=== PATIENT | female | born 1985 | race Caucasian/White ===

== ENCOUNTER 2016-10-15 17:33 | Emergency (ER) | payer BC ==
[2016-10-15 18:01] VITALS: BP 120/71
[2016-10-15] MEDS ORDERED: Sulfamethox/Trimethoprim DS 800/160* TAB PO ONE (18:32)
--- NOTE | 2016-10-15 18:48 | UC ---
Complaint Female HPI - HPI Summary HPI Summary: SINCE THIS AM HAD HAD INCREASED FREQUENCY AND BURNING WITH URINATION. NO FEVER. SINCE TWO HOURS AGO HAS HAD DISCOMFORT AROUND ABDOMEN. NOT CURRENTLY ON PERIOD. HAS BEEN DRINKING A LOT OF WATER AND CRANBERRY JUICE. NO BACK PAIN OR BLOOD NOTED IN URINE. - History Of Current Complaint Chief Complaint: UCGU Stated Complaint: URINARY Time Seen by Provider: 10/15/16 18:00 Hx Obtained From: Patient Hx Last Menstrual Period: 09/30/16 Onset/Duration: Gradual Onset, Lasting Hours, Still Present Timing: Intermittent Severity Initially: Mild Severity Currently: Mild Pain Intensity: 4 Pain Scale Used: 0-10 Numeric Character: Dull Aggravating Factor(s): Urination Associated Signs And Symptoms: Negative: Fever, Back Pain, Vaginal Bleeding/ Discharge, Vaginal Discharge, Nausea - Allergies/Home Medications Allergies/Adverse Reactions: Allergies Allergy/AdvReac Type Severity Reaction Status Date / Time Erythromycin Allergy HIVES AND Verified 10/15/16 18:02 STOMACH PAINS Adhesive Tape/Steristrips Allergy Blisters Uncoded 10/15/16 18:02 Environmental/Seasonal Allergy Sneeze, Uncoded 10/15/16 18:02 Hayfever itchy watery eyes PMH/Surg Hx/FS Hx/Imm Hx Previously Healthy: Yes Neurological History Of: Reports: Migraine - CONTROL WITH MEDS Psychological History Of: Reports: Anxiety - HX OF, Depression - HX OF - Surgical History Surgical History: Yes Surgery Procedure, Year, and Place: 2002 RIGHT KNEE ARTHROSCOPIC SURGERY, [facility]. 2012 CONDYLOMA REMOVED FROM RECTUM, [facility]. 1998 BILATERAL [facility] - Family History Known Family History: Positive: None - denies any cad Negative: Renal Disease - NO KIDNEY STONES - Social History Occupation: Employed Full-time Lives: With Family Alcohol Use: None Substance Use Type: None Smoking Status (MU): Never Smoked Tobacco - Immunization History Most Recent Influenza Vaccination: 2014 Most Recent Tetanus Shot: 2010 Most Recent Pneumonia Vaccination: NONE Review of Systems Constitutional: Negative Skin: Negative Eyes: Negative ENT: Negative Respiratory: Negative Cardiovascular: Negative Gastrointestinal: Negative Genitourinary: Dysuria, Frequency, Urgency Motor: Negative Neurovascular: Negative Musculoskeletal: Negative Neurological: Negative Psychological: Negative All Other Systems Reviewed And Are Negative: Yes Physical Exam Triage Information Reviewed: Yes Appearance: Well-Appearing, No Pain Distress, Well-Nourished Vital Signs: Initial Vital Signs Temp 96.7 F 10/15/16 17:59 Pulse 66 10/15/16 17:59 Resp 16 10/15/16 17:59 BP 120/71 10/15/16 17:59 Pulse Ox 100 10/15/16 17:59 Vital Signs Reviewed: Yes Eye Exam: Normal ENT Exam: Normal ENT: Positive: Normal ENT inspection, Hearing grossly normal, TMs normal Dental Exam: Normal Neck exam: Normal Neck: Positive: Supple, Nontender, No Lymphadenopathy Respiratory Exam: Normal Respiratory: Positive: Chest non-tender, Lungs clear, Normal breath sounds, No respiratory distress, No accessory muscle use Cardiovascular Exam: Normal Cardiovascular: Positive: RRR, No Murmur, Pulses Normal, Brisk Capillary Refill Abdomen Description: Positive: No Organomegaly, Soft, CVA Tenderness (L). Negative: Nontender - TENDERNESS AT BILATERAL LOWER QUADRANTS Musculoskeletal Exam: Normal Musculoskeletal: Positive: Strength Intact, ROM Intact, No Edema Neurological Exam: Normal Psychological Exam: Normal Psychological: Positive: Normal Response To Family Skin Exam: Normal Diagnostics - Laboratory Diagnostic Studies Completed/Ordered: URINALYSIS: SCANT LEUKS, 300 BLOOD Complaint Female Dx - Course Course Of Treatment: DUE TO SCANT LEUKS AND HEMATURIA IN ABSENCE OF MENSES, I ADVISED [facility]INT TO SEEK ED EVALUATION FOR HEMATURIA/DYSURIA. PATIENT REFUSED TO GO TO ED ([facility]) AND AGREED TO SIGN AMA. HOWEVER DUE TO POSSIBILITY OF DILUTED URINE, WITH SCANT LEUKS, I ALSO ELECTED TO GIVE A COURSE OF ANTIBIOTICS AND STRONGLY ADVISED PATIENT TO SEEK ED TREATMENT IF PAIN WORSENS, IF BLOOD WORSENS, OR IF ANY NEW SYMPTOMS DEVELOP - Differential Dx/Diagnosis Differential Diagnosis/HQI/PQRI: Cervicitis, Urinary Tract Infection Provider Diagnoses: DYSURIA. HEMATURIA Discharge - Discharge Plan Condition: Stable Disposition: AGAINST MEDICAL ADVICE Prescriptions: Sulfamethox/Trimethoprim DS* [Bactrim DS 800/160 TAB*] 1 tab PO BID #10 tab Patient Education Materials: Dysuria (ED) Referrals: Fredy Spencer MD [Primary Care Provider] -
== END 2016-10-15 18:41 | disposition left against medical advice (07) ==
LOC: UCCORT 17:33
DX: R30.0 Dysuria (principal); R31.9 Hematuria, unspecified; Z88.1 Allergy status to other antibiotic agents
CPT/HCPCS: 81025; 87077; 87086; 87186; 99212; A9270-GY; G0463

== ENCOUNTER 2016-11-14 12:53 | Emergency (ER) | payer BC ==
[2016-11-14] MEDS ORDERED: NS 0.9% 1000 ML* 1,000 ML IV ONE (15:33)
[2016-11-14] MEDS ORDERED: Acetaminophen TAB* 325 MG PO ONE (15:33)
[2016-11-14] MEDS ORDERED: PROCHLORPERAZINE INJ 5 MG/ML 2 ML VIAL IV PRN (15:34)
[2016-11-14] MEDS ORDERED: diPHENhydraMINE IV* 50 MG/ML 1 ml VIAL (BENADRYL) IV ONE (15:35)
--- NOTE | 2016-11-14 16:35 | ED ---
Headache - HPI Summary HPI Summary: Patient with a PMHx of migraines and bariatric surgery 1 year ago arrives with CC of migraine with 3 episodes of syncope over the last 3 days. She denies ever having syncope before, but has a history of migraines which she takes imitrex with relief. The last few times she has taken Imitrex, she has not found relief. She is experiencing syncope which she describes as "blacking out " and losing consciousness for "a second" and experiencing migraines right after. There is no specific times which she is passing out. One time was in the AM. Two times were in the PM. Two times were while standing. One time was while sitting. She states she feels "weird" immediately before she passes out, but can't determine if she is having a temperature change or feeling dizzy beforehand. Denies numbness, tingling. States the migraine is similar to her previous migraines which are not located in a specific location and move from behind the eyes to the parietal lobes and sometimes experiencing pain in the occipital lobe. Denies photophobia or visual changes, but vision becomes black prior to her passing out. Denies cardiac history or low blood pressures. She denies melena, hematemesis or known anemia. Denies abd pain, diarrhea, constipation or N/V. Denies urinary symptoms or back pain. - History Of Current Complaint Chief Complaint: EDHeadache Stated Complaint: HEADACHE/SYNCOPE Time Seen by Provider: 11/14/16 15:24 Hx Obtained From: Patient Hx Last Menstrual Period: 09/30/16 Onset/Duration: Sudden Onset, Started days ago Initially Headache Was: Moderate Currently Pain Is: Current Pain Scale(0-10)= - 5, Moderate Timing: Hours Character: Throbbing Location of Headache: Frontal, Parietal, Occipital, Other: - behind the left eye Aggravating Factor: Nothing Allevating Factors: Rest Associated Signs And Symptoms: Dizziness, Decreased LOC - Risk Factors SAH Risk Factors: Negative Meningitis Risk Factors: Negative SDH Risk Factors: Negative Temporal Arteritis Risk Factors: Negative - Allergies/Home Medications Allergies/Adverse Reactions: Allergies Allergy/AdvReac Type Severity Reaction Status Date / Time Erythromycin Allergy HIVES AND Verified 10/15/16 18:02 STOMACH PAINS Adhesive Tape/Steristrips Allergy Blisters Uncoded 10/15/16 18:02 Environmental/Seasonal Allergy Sneeze, Uncoded 10/15/16 18:02 Hayfever itchy watery eyes PMH/Surg Hx/FS Hx/Imm Hx Previously Healthy: Yes Respiratory History: Reports: Hx Sleep Apnea Sensory History: Reports: Hx Contacts or Glasses - GLASSES Denies: Hx Hearing Aid Opthamlomology History: Reports: Hx Contacts or Glasses - GLASSES Neurological History: Reports: Hx Migraine - CONTROL WITH MEDS Psychiatric History: Reports: Hx Anxiety - HX OF, Hx Depression - HX OF - Surgical History Surgery Procedure, Year, and Place: 2002 RIGHT KNEE ARTHROSCOPIC SURGERY, [facility]. 2012 CONDYLOMA REMOVED FROM RECTUM, [facility]. 1999 BILATERAL MYRINGOTOMY WITH TUBE INSERTION AND REMOVAL, [facility]. gastric bypass Hx Anesthesia Reactions: No Infectious Disease History: No Infectious Disease History: Denies: History Other Infectious Disease, Traveled Outside the in Last 30 Days - Family History Known Family History: Positive: None - denies any cad Negative: Renal Disease - NO KIDNEY STONES - Social History Occupation: Employed Full-time Lives: With Family Alcohol Use: None Hx Substance Use: No Substance Use Type: Reports: None Hx Tobacco Use: No Smoking Status (MU): Never Smoked Tobacco Review of Systems Constitutional: Negative ENT: Negative Cardiovascular: Negative Respiratory: Negative Gastrointestinal: Negative Positive: no symptoms reported, see HPI Musculoskeletal: Negative Skin: Negative Positive: Headache, Weakness, Syncope Psychological: Normal All Other Systems Reviewed And Are Negative: Yes Physical Exam Triage Information Reviewed: Yes Vital Signs On Initial Exam: Initial Vitals Temp Pulse Resp BP Pulse Ox 99.7 F 113 20 133/92 100 11/14/16 12:54 11/14/16 12:54 11/14/16 12:54 11/14/16 12:54 11/14/16 12:54 Vital Signs Reviewed: Yes Appearance: Positive: Well-Appearing Skin: Positive: Warm, Skin Color Reflects Adequate Perfusion Head/Face: Positive: Normal Head/Face Inspection Eyes: Positive: EOMI, MIKE, Conjunctiva Clear Neck: Positive: Supple Respiratory/Lung Sounds: Positive: Clear to Auscultation, Breath Sounds Present Cardiovascular: Positive: Normal, RRR Abdomen Description: Positive: Nontender, Soft Bowel Sounds: Positive: Present Musculoskeletal: Positive: Normal, Strength/ROM Intact Neurological: Positive: Normal, Sensory/Motor Intact, Alert, Oriented to Person Place, Time, CN Intact II-III, Normal Gait, Speech Normal Psychiatric: Positive: Normal AVPU Assessment: Alert Diagnostics - Vital Signs Vital Signs Temp Pulse Resp BP Pulse Ox 11/14/16 14:58 102.8 F 106 18 129/85 98 11/14/16 12:54 99.7 F 113 20 133/92 100 - Laboratory Result Diagrams: 11/14/16 17:10 Lab Statement: Any lab studies that have been ordered have been reviewed, and results considered in the medical decision making process. Headache Course/Dx - Course Course Of Treatment: Labs WNL. UA WNL. Fluids, benardryl, tylenol and compazine given. - Diagnoses Provider Diagnoses: Migraine Discharge - Discharge Plan Condition: Stable Disposition: OTHER Discharge Disposition Comment: Signed out to ISAAC Capone at 5:45pm. Referrals: Fredy Spenecr MD [Primary Care Provider] -
[2016-11-14 17:40] LABS: Hematocrit 41 % (35-47); Hemoglobin 13.8 g/dl (12.0-16.0); Mean Corpuscular HGB Conc 34 g/dl (31-36); Mean Corpuscular Hemoglobin 30 pg (27-31); Mean Corpuscular Volume 89 fL (80-97); Mean Platelet Volume 9 um3 (7.4-10.4); Red Blood Count 4.57 10^6/ul (4.0-5.4); Red Cell Distribution Width 13 % (10.5-15); White Blood Count 6.7 10^3/ul (3.5-10.8)
[2016-11-14 18:00] LABS: ALT 22 U/L (7-52); Albumin 4.1 g/dL (3.2-5.2); Alkaline Phosphatase 71 U/L (34-104); BUN/Creatinine Ratio 16.4 (8-20); Blood Urea Nitrogen 9 mg/dL (6-24); CO2 Carbon Dioxide 24 mmol/L (22-32); Calcium 9.1 mg/dL (8.6-10.3); Chloride 101 mmol/L (101-111); EGFR African American 168.1 (>60); EGFR Non-African American 130.7 (>60); Glucose 96 mg/dL (70-100); Sodium 132 mmol/L (133-145); Total Protein 7.1 g/dL (6.4-8.9)
[2016-11-14 18:09] LABS: TSH (Thyroid Stimulating Horm) 0.97 mcIU/mL (0.34-5.60)
--- NOTE | 2016-11-14 19:16 | RAD ---
Indication: Severe headaches with syncope. CT of the brain was performed without IV contrast. Ventricular structures are midline. No midline shift is noted. The stricture spaces are unremarkable. There is no evidence of intracranial mass or hemorrhage. No other high or low density lesions are identified. Mastoid air cells and paranasal sinuses are otherwise unremarkable. IMPRESSION: No intracranial mass or hemorrhage is noted.
[2016-11-14 19:39] LABS: Magnesium 1.6 mg/dL (1.9-2.7)
[2016-11-14] MEDS ORDERED: Magnesium Sulfate 2 GM IV* 2 GM/50 ML BAG IVPB ONE (19:41)
[2016-11-14] MEDS ORDERED: Ketorolac INJ* 30 MG/ML 1 ML VIAL IV PUSH ONE (20:28)
[2016-11-14 21:18] VITALS: BP 128/96
--- NOTE | 2016-11-14 21:18 | ED ---
Progress - Progress Note Progress Note: Pt signed out by Karen Larson PA-C. Pt here w/ c/o syncope followed by migraines. She has had migraines in the past but not syncope and not sure why this is happening. She reports vision going dark and falling while at work once (landed on knees, did not hit head) and another time while sitting on the couch, watching TV. After both of these episodes has had BRYANT's. Has been taking imitrex w/o relief. She is s/p bariatric surgery. Has nutrition labs checked q 3 months - last checked 2 months ago. No change in diet. Denies issues w/ BP and no s/sx of bleeding (ie. hematochezia, easy bruising, etc). Feels bad in general. Labs indicate hypomagnesemia and mild hyponatremia. No s/sx of infection, anemia , etc. Pt received 2L NS and 2 grams of IV magnesium. Reports she feels much better and stronger - BYRANT and leg pain resolved. Ready to go home. Advised f/u w/ bariatric surgeon as she does not appear to be absorbing mag well. Pt agrees w/ plan. Encouraged eating foods high in magnesium. Reviewed danger s/sx of when to return to ED. Course/Dx - Course Course Of Treatment: Labs WNL. UA WNL. Fluids, benardryl, tylenol and compazine given. - Diagnoses Provider Diagnoses: Migraine
== END 2016-11-14 21:18 | disposition home or self-care (01) ==
LOC: ED 12:53
DX: G43.909 Migraine, unspecified, not intractable, without status migrainosus (principal); R55 Syncope and collapse; R42 Dizziness and giddiness; R53.1 Weakness
CPT/HCPCS: 36415; 70450; 80053; 82947; 83605; 83735; 84443; 84484; 85025; 85610; 85730; 87502; 93005; 96374; 96375; 99285; A9270-GY; J0780; J1200; J3475

== ENCOUNTER → 2017-02-01 04:57 | Emergency (ER) | payer BC ==
[~2017-02-01 04:57] MED LIST: Sulfamethox/Trimethoprim DS 800/160* TAB ONE; Sulfamethox/Trimethoprim DS 800/160* TAB PO ONE
[2017-02-01 05:56] LABS: Manual Entry Verification ROB0080; UR Preg Internal Control QC Line Present
[2017-02-01 06:26] VITALS: BP 118/79
--- NOTE | 2017-02-03 15:10 | PN ---
Progress Note - Progress Note Note: Patient calls ED to inform provider she is not improving on Bactrim. Lab called to request sensitivities as they are not inputted at this time. Sensitivities sent, and E. Coli resistant to Bactrim. Prescription changed to Cipro. Patient called and informed of results. She agrees to picking tech Ciprofloxacin and Pyridium today and return if symptoms worsen.
--- NOTE | 2017-02-05 10:55 | ED ---
Micki Walker [place], scribed for Daniel Ramirez MD on 02/01/17 at 0605 . GI/ HPI - HPI Summary HPI Summary: Patient is a 31 y/o F who presents to the ED with hematuria and dysuria since last night. She states that she had similar sx last week with cramping abd pain and was diagnosed with a UTI. Pt was put on Macrobid and finished course 2 days ago. She denies flank pain, fever, chills, or vaginal discharge. LMP ended 10 days ago. Pt has a hx of gastric bypass. Pt denies concern of STDs. - History of Current Complaint Chief Complaint: EDUrogenitalProblems Time Seen by Provider: 02/01/17 06:02 Stated Complaint: BLOOD IN URINE Hx Obtained From: Patient Onset/Duration: Started Hours Ago, Atraumatic, Still Present Timing: Constant Severity: Moderate Current Severity: Moderate Location of Pain: Suprapubic Pain Characteristics: Burning Associated Signs and Symptoms: Positive: Hematuria, Dysuria, Abdominal Pain, UTI Symptoms. Negative: Discharge, Fever, Flank Pain Aggravating Factor(s): Urination Alleviating Factor(s): Nothing - Additional Pertinent History Primary Care Physician: TAMRA - Allergy/Home Medications Allergies/Adverse Reactions: Allergies Allergy/AdvReac Type Severity Reaction Status Date / Time Erythromycin Allergy HIVES AND Verified 10/15/16 18:02 STOMACH PAINS Adhesive Tape/Steristrips Allergy Blisters Uncoded 10/15/16 18:02 Environmental/Seasonal Allergy Sneeze, Uncoded 10/15/16 18:02 Hayfever itchy watery eyes PMH/Surg Hx/FS Hx/Imm Hx Respiratory History: Reports: Hx Sleep Apnea Sensory History: Reports: Hx Contacts or Glasses - GLASSES Denies: Hx Hearing Aid Opthamlomology History: Reports: Hx Contacts or Glasses - GLASSES Neurological History: Reports: Hx Migraine - CONTROL WITH MEDS Psychiatric History: Reports: Hx Anxiety - HX OF, Hx Depression - HX OF - Surgical History Surgery Procedure, Year, and Place: 2002 RIGHT KNEE ARTHROSCOPIC SURGERY, [facility] [place]. 2012 CONDYLOMA REMOVED FROM RECTUM, [facility] [place]. 1998 BILATERAL MYRINGOTOMY WITH TUBE INSERTION AND REMOVAL, [facility]. gastric bypass Hx Anesthesia Reactions: No Infectious Disease History: Denies: History Other Infectious Disease, Traveled Outside the [place] in Last 30 Days - Family History Known Family History: Positive: None - denies any cad Negative: Renal Disease - NO KIDNEY STONES - Social History Alcohol Use: None Hx Substance Use: No Substance Use Type: Reports: None Hx Tobacco Use: No Smoking Status (MU): Never Smoked Tobacco Review of Systems Negative: Fever, Chills Positive: Abdominal Pain Positive: dysuria, hematuria. Negative: discharge, flank pain All Other Systems Reviewed And Are Negative: Yes Physical Exam Triage Information Reviewed: Yes Vital Signs Reviewed: Yes Appearance: Positive: Well-Appearing, No Pain Distress Skin: Positive: Warm, Skin Color Reflects Adequate Perfusion, Dry Head/Face: Positive: Normal Head/Face Inspection Eyes: Positive: EOMI, MIKE Neck: Positive: Supple, Nontender Respiratory/Lung Sounds: Positive: Clear to Auscultation, Breath Sounds Present Cardiovascular: Positive: RRR Abdomen Description: Positive: Soft, Other: - Mild pain over suprapubic. Bowel Sounds: Positive: Present Musculoskeletal: Positive: Normal, Strength/ROM Intact Neurological: Positive: Normal, Sensory/Motor Intact, Alert, Oriented to Person Place, Time Psychiatric: Positive: Affect/Mood Appropriate - Angela Coma Scale Coma Scale Total: 15 Diagnostics - Laboratory Lab Results: Lab Results 02/01/17 Range/Units 05:28 Urine Color Red A Urine Appearance Turbid Urine pH TNP Ur Specific [place] TNP Urine Protein TNP Urine Ketones TNP Urine Blood TNP Urine Nitrate TNP Urine Bilirubin TNP Urine Urobilinogen TNP Ur Leukocyte Esterase TNP Urine WBC (Auto) 3+(>20/hpf) H (Absent) Urine RBC (Auto) 3+(>10/hpf) H (Absent) Urine Glucose TNP Urine Ascorbic Acid TNP Urine Test Negative (Negative) Lab Statement: Any lab studies that have been ordered have been reviewed, and results considered in the medical decision making process. GIGU Course/Dx - Course Course Of Treatment: NO CRITICAL CARE TIME. WILL TREAT UTI WITH BACTRIM. PATIENT RECENTLY TREATED FOR GARDNERELLA. DISCHARGE HOME STABLE. - Diagnoses Provider Diagnoses: UTI (urinary tract infection) Discharge - Discharge Plan Condition: Stable Disposition: HOME Prescriptions: Ciprofloxacin TAB* [Cipro 500 MG TAB*] 500 mg PO BID #14 tab Phenazopyridine TAB* [Pyridium 100 mg TAB*] 100 mg PO TID #12 tab MDD 3 Sulfamethox/Trimethoprim DS* [Bactrim DS 800/160 TAB*] 1 tab PO BID #13 tab Patient Education Materials: Urinary Tract Infection in Women (ED) Referrals: Fredy Spencer MD [Primary Care Provider] - Additional Instructions: FOLLOW UP WITH YOUR DOCTOR. RETURN TO THE EMERGENCY DEPARTMENT FOR ANY WORSENING OF YOUR CONDITION; FEVER, FLANK PAIN, YOU FEEL ILL OR QUESTIONS OR CONCERNS. The documentation as recorded by the Micki wood [place] accurately reflects the service I personally performed and the decisions made by me, Daniel Ramirez MD.
== END | disposition home or self-care (01) ==
LOC: ED 04:57
DX: N39.0 Urinary tract infection, site not specified (principal); R31.9 Hematuria, unspecified; R30.0 Dysuria
CPT/HCPCS: 81003; 81025; 87077; 87086; 87186; 99282; A9270-GY

== ENCOUNTER 2017-07-18 10:10 | Emergency (ER) | payer BC ==
[2017-07-18 10:20] VITALS: BP 132/82
--- NOTE | 2017-07-18 10:56 | UC ---
Respiratory Complaint HPI - HPI Summary HPI Summary: Pt presents with right sided headache and sinus congestion for 10 days. At first she thought it was her "usual migraine" so she took her migraine medications without relief. Then she tried OTC decongestants with mild relief. She reports an increased temp of 100.0F the last two days. Denies cough, ST, SOB , chest pain, abdominal pain, N/V/D/C, photophobia, vision changes, recent trauma, difficulty with movement or speech, or weakness. - History of Current Complaint Chief Complaint: UCRespiratory Stated Complaint: HEADACHE, FEVER Time Seen by Provider: 07/18/17 10:49 Hx Obtained From: Patient Hx Last Menstrual Period: 06/26/2017 Onset/Duration: Gradual Onset Timing: Constant Severity Initially: Moderate Severity Currently: Moderate Pain Intensity: 8 Pain Scale Used: 0-10 Numeric - Allergies/Home Medications Allergies/Adverse Reactions: Allergies Allergy/AdvReac Type Severity Reaction Status Date / Time Erythromycin Allergy HIVES AND Verified 07/18/17 10:14 STOMACH PAINS Adhesive Tape/Steristrips Allergy Blisters Uncoded 07/18/17 10:14 Environmental/Seasonal Allergy Sneeze, Uncoded 07/18/17 10:14 Hayfever itchy watery eyes Home Medications: Home Medications Acarbose [Precose] 25 mg PO TID 07/18/17 [History Confirmed 07/18/17] PMH/Surg Hx/FS Hx/Imm Hx Previously Healthy: Yes Neurological History: Migraine - Surgical History Surgical History: Yes Surgery Procedure, Year, and Place: 2002 RIGHT KNEE ARTHROSCOPIC SURGERY, [facility]. 2012 CONDYLOMA REMOVED FROM RECTUM, [facility]. 1998 BILATERAL MYRINGOTOMY WITH [facility] INSERTION AND [facility]AL, [facility]. gastric bypass - Family History Known Family History: Positive: None - denies any cad Negative: Renal Disease - NO KIDNEY STONES - Social History Alcohol Use: Rare Substance Use Type: None Smoking Status (MU): Never Smoked Tobacco - Immunization History Most Recent Influenza Vaccination: 2014 Most Recent Tetanus Shot: 2010 Most Recent Pneumonia Vaccination: NONE Review of Systems Constitutional: Fever Skin: Negative Eyes: Negative ENT: Nasal Discharge, Sinus Congestion, Sinus Pain/Tenderness Respiratory: Negative Cardiovascular: Negative Gastrointestinal: Negative Genitourinary: Negative Neurological: Negative Psychological: Negative All Other Systems Reviewed And Are Negative: Yes Physical Exam Triage Information Reviewed: Yes Appearance: Well-Appearing, Well-Nourished Vital Signs: Initial Vital Signs Temp 98.3 F 07/18/17 10:16 Pulse 95 07/18/17 10:16 Resp 18 07/18/17 10:16 BP 132/82 07/18/17 10:16 Pulse Ox 100 07/18/17 10:16 Vital Signs Reviewed: Yes Eyes: Positive: Conjunctiva Clear, Other: - EOMI. PERRLA ENT: Positive: Hearing grossly normal, Pharynx normal, Nasal congestion, Nasal drainage, TMs normal, Sinus tenderness, Uvula midline. Negative: Pharyngeal erythema, TM bulging, TM dull, TM red, Tonsillar swelling, Tonsillar exudate Neck: Positive: Supple, Nontender, No Lymphadenopathy, Other: - FROM Respiratory: Positive: Chest non-tender, Lungs clear, Normal breath sounds, No respiratory distress, No accessory muscle use Cardiovascular: Positive: RRR, No Murmur, Pulses Normal Musculoskeletal: Positive: Strength Intact, ROM Intact, No Edema Neurological: Positive: Alert, Muscle Tone Normal, Other: - CN II-XII grossly intact. Psychological: Positive: Age Appropriate Behavior Skin: Negative: rashes UC Diagnostic Evaluation - Laboratory O2 Sat by Pulse Oximetry: 100 Respiratory Course/Dx - Course Course Of Treatment: Sinusitis - Augmentin - Differential Dx/Diagnosis Differential Diagnosis/HQI/PQRI: Bronchitis, Sinusitis, Other - TIA. CVA. Migraine. Headache. Provider Diagnoses: Sinusitis. Headache Discharge - Discharge Plan Condition: Stable Disposition: HOME Prescriptions: Amoxicillin/Clavulanate TAB* [Augmentin TAB 875*] 875 mg PO BID #20 tab Patient Education Materials: Sinusitis (ED) Referrals: Yulisa Davis MD [Primary Care Provider] - Additional Instructions: If you develop a fever, SOB, chest pain, vomiting, nausea, new or worsening symptoms - please call your PCP or go to the ED.
== END 2017-07-18 11:10 | disposition home or self-care (01) ==
LOC: UCEAST 10:10
DX: J32.9 Chronic sinusitis, unspecified (principal); R51 Headache; R50.9 Fever, unspecified
CPT/HCPCS: 99212; G0463

== ENCOUNTER 2017-08-31 06:36 | Emergency (ER) | payer BC ==
[2017-08-31] MEDS ORDERED: NS 0.9% 1000 ML* 2,000 ML IV ONE (07:33)
[2017-08-31 08:02] LABS: ABS Basophils 0 10^3/ul (0-0.2); ABS Eosinophils 0.1 10^3/ul (0-0.6); ABS Lymphocytes 1.7 10^3/ul (1.0-4.8); ABS Monocytes 0.5 10^3/ul (0-0.8); ABS Neutrophils 3.6 10^3/ul (1.5-7.7); ABS Nucleated RBC 0 10^3/ul; Eosinophil % 1.4 % (0-6); Hematocrit 38 % (35-47); Hemoglobin 13.4 g/dl (12.0-16.0); Lymphocyte % 28.9 % (25-47); Mean Corpuscular HGB Conc 35 g/dl (31-36); Mean Corpuscular Hemoglobin 31 pg (27-31); Mean Corpuscular Volume 88 fL (80-97); Mean Platelet Volume 8 um3 (7.4-10.4); Nucleated Red Blood Cells % 0.1; Platelet Count 260 10^3/ul (150-450); Red Blood Count 4.35 10^6/ul (4.0-5.4); Red Cell Distribution Width 13 % (10.5-15); White Blood Count 5.9 10^3/ul (3.5-10.8)
[2017-08-31 08:07] LABS: Urine Appearance Cloudy; Urine Blood Negative (Negative); Urine Color Yellow; Urine Ketones Negative (Negative); Urine Protein Negative (Negative); Urine Specific Gravity 1.002 (1.010-1.030); Urine Urobilinogen Negative (Negative)
[2017-08-31 08:20] LABS: EGFR Non-African American 96.7 (>60)
[2017-08-31 08:27] LABS: INR 1.02 (0.77-1.02)
[2017-08-31] MEDS ORDERED: Iohexol 300* (CONTRAST) 10 ML SDV IV ONE (10:00)
--- NOTE | 2017-08-31 10:41 | RAD ---
INDICATION: Left lower quadrant pain and diarrhea, recent antibiotic use. COMPARISON: There are no prior studies available for comparison. TECHNIQUE: A CT scan of the abdomen and pelvis was performed with intravenous and oral contrast following intravenous injection of 100 ml of Omnipaque 300 nonionic contrast. Contiguous axial sections were obtained from the lung bases through the symphysis pubis. Images were reconstructed in the coronal and sagittal planes. FINDINGS: The lung bases are clear. No pleural effusion is present. The liver and spleen are mildly enlarged. There is mild decrease in attenuation present in the anterior aspect of the left hepatic lobe most consistent with focal fatty infiltration. No other focal abnormalities are seen. No calcified gallstones are noted. The pancreas appears to be within normal limits. The kidneys and adrenal glands are normal in size. No hydronephrosis is seen. No significant focal renal abnormality is seen. The aorta is normal in caliber and demonstrates homogeneous contrast opacification. No significant enlarged retroperitoneal lymph nodes are seen. The patient appears to be status post Rodger-en-Y gastric bypass surgery. The small bowel and colon appear nondistended. The appendix is within normal limits. There are a few scattered diverticuli within the colon. There is no evidence for diverticulitis or colitis. The uterus is anteverted and normal in size. No free intraperitoneal air or fluid is seen. No significant focal osseous abnormality is seen. IMPRESSION: NO EVIDENCE FOR ACUTE FINDING OR CAUSE FOR THE PATIENT'S ABDOMINAL PAIN IS SEEN.
[2017-08-31 11:16] VITALS: BP 127/65
--- NOTE | 2017-08-31 11:33 | ED ---
Devan Walker Stephanie, scribed for Daniel Ramirez MD on 08/31/17 at 0746 . GI/ HPI - HPI Summary HPI Summary: The pt is a 32 y/o F presenting to the ED with diarrhea that began 7 days ago on 08/24/17. The pt reports having diarrhea BM once per day since it began until yesterday when she has been having a M every few hours. Symptoms include pressure, flatulence, abd pain, lower back pain, dry mouth, increased HR, and chills. The pt denies blood in stool, fever, and nausea. The pt reports that the diarrhea began as watery and has become loose within the last few days. LKMP was normal and occurred 2 weeks ago. The pt states that she feels that every time she completes a BM, she has not finished and needs to pass a BM again. The pt was recently on abx to treat reoccurring UTIs. 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 The pt rates her pain as a 9 in severity at its worst. Eating does not alleviate/aggravate symptoms. - History of Current Complaint Chief Complaint: EDNauseaVomitDiarrh Time Seen by Provider: 08/31/17 07:23 Stated Complaint: GI PROBLEMS Hx Obtained From: Patient Hx Last Menstrual Period: 06/26/2017 Onset/Duration: Started Weeks Ago - 1 Timing: Intermittent Severity: Moderate Pain Intensity: 7 Pain Characteristics: Pressure Associated Signs and Symptoms: Positive: Back Pain - lower, Diarrhea, Chills, Abdominal Pain, Other: - flatulence, dry mouth, increased HR. Negative: Nausea , Blood-Streaked Stool, Bright Red Blood w/Stool, Blood w/Stool, Fever Additional Signs & Symptoms: Positive: Recent Antibiotics Aggravating Factor(s): Nothing Alleviating Factor(s): Nothing - Additional Pertinent History Primary Care Physician: [id number] - Allergy/Home Medications Allergies/Adverse Reactions: Allergies Allergy/AdvReac Type Severity Reaction Status Date / Time Erythromycin Allergy HIVES AND Verified 08/31/17 06:42 STOMACH PAINS Adhesive Tape/Steristrips Allergy Blisters Uncoded 08/31/17 06:42 Environmental/Seasonal Allergy Sneeze, Uncoded 08/31/17 06:42 Hayfever itchy watery eyes PMH/Surg Hx/FS Hx/Imm Hx Respiratory History: Reports: Hx Sleep Apnea Sensory History: Reports: Hx Contacts or Glasses - GLASSES Denies: Hx Hearing Aid Opthamlomology History: Reports: Hx Contacts or Glasses - GLASSES EENT History: Denies: Hx Deafness Neurological History: Reports: Hx Migraine - CONTROL WITH MEDS Psychiatric History: Reports: Hx Anxiety - HX OF, Hx Depression - HX OF - Surgical History Surgery Procedure, Year, and Place: 2002 RIGHT KNEE ARTHROSCOPIC SURGERY, [facility]. 2012 CONDYLOMA REMOVED FROM RECTUM, [facility]. 1998 BILATERAL MYRINGOTOMY WITH TUBE INSERTION AND REMOVAL, [facility]. gastric bypass Hx Anesthesia Reactions: No - Immunization History Date of Influenza Vaccine: 05/2017 Infectious Disease History: No Infectious Disease History: Denies: History Other Infectious Disease, Traveled Outside the in Last 30 Days - Family History Known Family History: Positive: Unknown - denies any cad Negative: Renal Disease - NO KIDNEY STONES - Social History Occupation: Employed Full-time Lives: With Family Alcohol Use: Rare Hx Substance Use: No Substance Use Type: Reports: None Hx Tobacco Use: No Smoking Status (MU): Never Smoked Tobacco Review of Systems Positive: Chills. Negative: Fever Positive: Other - dry mouth Positive: Other - increased HR Positive: Abdominal Pain - pain and pressure, Diarrhea, Other - flatulence. Negative: Nausea Positive: Other - lower back pain All Other Systems Reviewed And Are Negative: Yes Physical Exam - Summary Physical Exam Summary: General: well-appearing, no pain distress Skin: warm, color reflects adequate perfusion, dry Head: normal Eyes: EOMI, MIKE ENT: Oral mucosa dry Neck: supple, nontender Respiratory: CTA, breath sounds present Cardiovascular: Tachycardic Abdomen: soft, nontender Bowel: positive bowel sounds Musculoskeletal: normal, strength/ROM intact Neurological: normal, sensory/motor intact, A&O x3 Psychological: affect/mood appropriate Triage Information Reviewed: Yes Vital Signs On Initial Exam: Initial Vitals Temp Pulse Resp BP Pulse Ox 98.0 F 110 16 157/86 100 08/31/17 06:38 08/31/17 06:38 08/31/17 06:38 08/31/17 06:38 08/31/17 06:38 Vital Signs Reviewed: Yes - Angela Coma Scale Coma Scale Total: 15 Diagnostics - Vital Signs Vital Signs Temp Pulse Resp BP Pulse Ox 08/31/17 06:52 111 99 08/31/17 06:49 141/95 08/31/17 06:38 98.0 F 110 16 157/86 100 - Laboratory Lab Results: Lab Results 08/31/17 08/31/17 08/31/17 Range/Units 07:24 07:49 07:49 WBC 5.9 (3.5-10.8) 10^3/ul RBC 4.35 (4.0-5.4) 10^6/ul Hgb 13.4 (12.0-16.0) g/dl Hct 38 (35-47) % MCV 88 (80-97) fL MCH 31 (27-31) pg MCHC 35 (31-36) g/dl RDW 13 (10.5-15) % Plt Count 260 (150-450) 10^3/ul MPV 8 (7.4-10.4) um3 Neut % (Auto) 61.4 (38-83) % Lymph % (Auto) 28.9 (25-47) % Park % (Auto) 7.9 (1-9) % Eos % (Auto) 1.4 (0-6) % Baso % (Auto) 0.4 (0-2) % Absolute Neuts (auto) 3.6 (1.5-7.7) 10^3/ul Absolute Lymphs (auto) 1.7 (1.0-4.8) 10^3/ul Absolute Monos (auto) 0.5 (0-0.8) 10^3/ul Absolute Eos (auto) 0.1 (0-0.6) 10^3/ul Absolute Basos (auto) 0 (0-0.2) 10^3/ul Absolute Nucleated RBC 0 10^3/ul Nucleated RBC % 0.1 INR (Anticoag Therapy) (0.77-1.02) Sodium 136 (133-145) mmol/L Potassium 3.5 (3.5-5.0) mmol/L Chloride 104 (101-111) mmol/L Carbon Dioxide 24 (22-32) mmol/L Anion Gap 8 (2-11) mmol/L BUN 7 (6-24) mg/dL Creatinine 0.71 (0.51-0.95) mg/dL Est GFR ( Amer) 124.3 (>60) Est GFR (Non-Af Amer) 96.7 (>60) BUN/Creatinine Ratio 9.9 (8-20) Glucose 92 (70-100) mg/dL Lactic Acid (0.5-2.0) mmol/L Calcium 9.2 (8.6-10.3) mg/dL Total Bilirubin 0.60 (0.2-1.0) mg/dL AST 20 (13-39) U/L ALT 14 (7-52) U/L Alkaline Phosphatase 65 (34-104) U/L Total Creatine Kinase 68 (10-223) U/L C-Reactive Protein 4.73 (< 5.00) mg/L Total Protein 6.9 (6.4-8.9) g/dL Albumin 4.1 (3.2-5.2) g/dL Globulin 2.8 (2-4) g/dL Albumin/Globulin Ratio 1.5 (1-3) Lipase 32 (11.0-82.0) U/L Beta HCG, Quant 1.13 mIU/mL Urine Color Yellow Urine Appearance Cloudy Urine pH 7.0 (5-9) Ur Specific Osgood 1.002 L (1.010-1.030) Urine Protein Negative (Negative) Urine Ketones Negative (Negative) Urine Blood Negative (Negative) Urine Nitrate Negative (Negative) Urine Bilirubin Negative (Negative) Urine Urobilinogen Negative (Negative) Ur Leukocyte Esterase Negative (Negative) Urine Glucose Negative (Negative) 08/31/17 08/31/17 Range/Units 07:49 07:49 WBC (3.5-10.8) 10^3/ul RBC (4.0-5.4) 10^6/ul Hgb (12.0-16.0) g/dl Hct (35-47) % MCV (80-97) fL MCH (27-31) pg MCHC (31-36) g/dl RDW (10.5-15) % Plt Count (150-450) 10^3/ul MPV (7.4-10.4) um3 Neut % (Auto) (38-83) % Lymph % (Auto) (25-47) % Park % (Auto) (1-9) % Eos % (Auto) (0-6) % Baso % (Auto) (0-2) % Absolute Neuts (auto) (1.5-7.7) 10^3/ul Absolute Lymphs (auto) (1.0-4.8) 10^3/ul Absolute Monos (auto) (0-0.8) 10^3/ul Absolute Eos (auto) (0-0.6) 10^3/ul Absolute Basos (auto) (0-0.2) 10^3/ul Absolute Nucleated RBC 10^3/ul Nucleated RBC % INR (Anticoag Therapy) 1.02 (0.77-1.02) Sodium (133-145) mmol/L Potassium (3.5-5.0) mmol/L Chloride (101-111) mmol/L Carbon Dioxide (22-32) mmol/L Anion Gap (2-11) mmol/L BUN (6-24) mg/dL Creatinine (0.51-0.95) mg/dL Est GFR ( Amer) (>60) Est GFR (Non-Af Amer) (>60) BUN/Creatinine Ratio (8-20) Glucose (70-100) mg/dL Lactic Acid 0.7 (0.5-2.0) mmol/L Calcium (8.6-10.3) mg/dL Total Bilirubin (0.2-1.0) mg/dL AST (13-39) U/L ALT (7-52) U/L Alkaline Phosphatase (34-104) U/L Total Creatine Kinase (10-223) U/L C-Reactive Protein (< 5.00) mg/L Total Protein (6.4-8.9) g/dL Albumin (3.2-5.2) g/dL Globulin (2-4) g/dL Albumin/Globulin Ratio (1-3) Lipase (11.0-82.0) U/L Beta HCG, Quant mIU/mL Urine Color Urine Appearance Urine pH (5-9) Ur Specific Osgood (1.010-1.030) Urine Protein (Negative) Urine Ketones (Negative) Urine Blood (Negative) Urine Nitrate (Negative) Urine Bilirubin (Negative) Urine Urobilinogen (Negative) Ur Leukocyte Esterase (Negative) Urine Glucose (Negative) Result Diagrams: 08/31/17 07:49 08/31/17 07:49 Lab Statement: Any lab studies that have been ordered have been reviewed, and results considered in the medical decision making process. - CT Abd/ Pelvis CT Interpretation: No Acute Changes CT Interpretation Completed By: Radiologist - NO EVIDENCE FOR ACUTE FINDING OR CAUSE FOR THE PATIENT'S ABDOMINAL PAIN IS SEEN. GIGU Course/Dx - Course Course Of Treatment: Medications reviewed. DISCUSSED RESULTS WITH PATIENT. WILL START ABX IF DIARRHEA PERSISTS OR WORSENS OR A FEVER DEVELOPS. F/U PMD; RETURN IF WORSE. - Diagnoses Provider Diagnoses: Diarrhea, Abdominal pain Discharge - Discharge Plan Condition: Stable Disposition: HOME Prescriptions: Ciprofloxacin TAB* [Cipro 500 MG TAB*] 500 mg PO BID #10 tab Metronidazole [Flagyl 500 MG TAB] 500 mg PO TID #21 tab Patient Education Materials: Acute Diarrhea (ED), Abdominal Pain (ED) Forms: *Work Release Referrals: Yulisa Davis MD [Primary Care Provider] - Additional Instructions: FOLLOW UP WITH YOUR DOCTOR. START THE ANTIBIOTICS IF THE DIARRHEA DOES NOT RESOLVE OR IF YOU HAVE A FEVER. RETURN TO THE EMERGENCY DEPARTMENT FOR ANY WORSENING OF YOUR CONDITION; PAIN, FEVER, YOU FEEL ILL OR QUESTIONS OR CONCERNS. The documentation as recorded by the Devan wood Stephanie accurately reflects the service I personally performed and the decisions made by me, Daniel Ramirez MD.
--- NOTE | 2017-09-01 09:25 | PN ---
Progress Note - Progress Note Date of Service: 08/31/17 Note: patient diagnosed with diarrhea and abdominal pain. treated with cipro/flagyl. stool culture results negative for c diff, cryptosporidium/giardia and positive for fecal lactoferrin. no further changes required at this time.
--- NOTE | 2017-09-03 09:01 | PN ---
Progress Note - Progress Note Date of Service: 08/31/17 Note: no enteric pathogens isolated
== END 2017-08-31 11:45 | disposition home or self-care (01) ==
LOC: ED 06:36
DX: R19.7 Diarrhea, unspecified (principal); R10.32 Left lower quadrant pain; M54.5 Low back pain; R68.83 Chills (without fever); Z32.02 Encounter for pregnancy test, result negative; Z87.440 Personal history of urinary (tract) infections; G43.909 Migraine, unspecified, not intractable, without status migrainosus; F41.9 Anxiety disorder, unspecified; F32.9 Major depressive disorder, single episode, unspecified; Z98.84 Bariatric surgery status; Z88.1 Allergy status to other antibiotic agents; Z91.048 Other nonmedicinal substance allergy status
CPT/HCPCS: 36415; 74177; 80053; 81003; 82270; 82550; 83605; 83630; 83690; 84702; 85025; 85610; 86140; 87045; 87046; 87077; 87328; 87329; 87493; 87899; 96360; 96361; 99283; Q9967

== ENCOUNTER 2018-12-17 07:02 | Emergency (ER) | payer BC ==
--- OUTSIDE RECORDS SUMMARY | 2018-12-17 07:09 | XMS REPORT | Continuity of Care Document ---
:1985 External Reference #:[id number] Author Name Kevon Coulter M.D. Address [address] [place] [address] Care Team Providers Name Role Phone Yulisa Davis M.D. 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 Primary Care Physician Unavailable Payers Date Identification Numbers Payment Provider Subscriber Effective: 2018 Policy Number: [id number] BC/BS Of [employer] PayID: [id number] [address] [place] [address] Effective: 2015 Policy Number: [id number] BC/BS Of [employer] Expires: 2018 Group Name: [address] [address] PayID: [id number] [address] [place] [address] Advance Directives Description No Information Available Problems Active Problems Provider Date Headache Shruthi Christie M.D. Onset: 02/08/2018 Allergic rhinitis Shruthi Christie M.D. 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 Home Environment mattress isless than a year Home Environment Mattress is encased in an allergy proof case Home Environment Pillows are encased in an allergy proof case Home Environment Does not use a dehumidifier Home Environment There are draperies in the home Home Environment The home is not cristina Home Environment The floors are carpeted Home Environment The floors are tile Home Environment Uses forced air heating Home Environment Uses natural gas heating Home Environment [facility] Home Environment Water Source: [facility] Smoke-Free 02/08/2018 Home is smoke-free Smoke-Free Work is smoke-free Pets 2 dogs Pets Animals sleep in bedroom ETOH Use Consumes 1-2 glasses of wine per week ETOH Use Occasionally consumes wine Tobacco Use Start: Unknown Patient has never smoked Allergies, Adverse Reactions, Alerts Active Allergies Reaction Severity Comments Date Erythromycin Nausea and Vomiting, Hives 01/28/2018 Medications Active Medications SIG Qnty Indications Ordering Provider Date Pazeo 1 drop each 2.500ml H10.45 Shena Faith, 12/16/2018 0.7% Solution eye once daily [employer] Nitrofurantoin Unknown Monohydrate/Macrocrysta ls 100mg Capsules Sumatriptan Succinate Davis, Yulisa, 100mg MD Tablets Zyrtec Allergy 1 by mouth Unknown 10mg every day Capsules Multivitamin Adults Unknown Tablets Propranolol HCL Davis, Yulisa, 10mg MD Tablets Medications Administered in Office Medication SIG Qnty Indications Ordering Provider Date Injection Allergy Injection 12/16/2018 Injection Injection Allergy Injection 12/02/2018 Injection Injection Allergy Injection 11/22/2018 Injection Injection Allergy Injection 11/08/2018 Injection Injection Allergy Injection 10/21/2018 Injection Injection Allergy Injection 10/10/2018 Injection Injection Allergy Injection 10/02/2018 Injection Injection Allergy Injection 09/23/2018 Injection Injection Allergy Injection 09/19/2018 Injection Injection Allergy Injection 09/09/2018 Injection Injection Allergy Injection 08/29/2018 Injection Injection Allergy Injection 08/23/2018 Injection Injection Allergy Injection 08/16/2018 Injection Injection Allergy Injection 08/09/2018 Injection Injection Allergy Injection 07/29/2018 Injection Injection Allergy Injection 07/24/2018 Injection Injection Allergy Injection 07/11/2018 Injection Injection Allergy Injection 07/05/2018 Injection Injection Allergy Injection 06/27/2018 Injection Injection Allergy Injection 06/17/2018 Injection Injection Allergy Injection 06/14/2018 Injection Injection Allergy Injection 06/06/2018 Injection Injection Allergy Injection 05/29/2018 Injection Injection Allergy Injection 05/24/2018 Injection Injection Allergy Injection 05/17/2018 Injection Injection Allergy Injection 05/10/2018 Injection Injection Allergy Injection 05/03/2018 Injection Injection Shruthi Christie M.D. 04/25/2018 Injection Injection Allergy Injection 04/25/2018 Injection Injection Allergy Injection 04/19/2018 Injection Injection Allergy Injection 04/11/2018 Injection Injection Allergy Injection 04/03/2018 Injection Injection Allergy Injection 03/27/2018 Injection Injection Allergy Injection 03/20/2018 Injection Injection Allergy Injection 03/14/2018 Injection Injection Allergy Injection 03/06/2018 Injection Injection Allergy Injection 03/01/2018 Injection Injection Allergy Injection 02/21/2018 Injection Injection Allergy Injection 02/15/2018 Injection Immunizations CPT Code Status Date Vaccine Lot # [id number] Given Unknown Influenza Vaccine Vital Signs Date Vital Result Comment 12/16/2018 2:58pm Height 63 inches 5'3" Weight 191.00 lb Weight 86.638 kg Respiratory Rate 20 /min Heart Rate 73 /min O2 % BldC Oximetry 98 % BP Systolic 106 mmHg BP Diastolic 74 mmHg BMI (Body Mass Index) 33.8 kg/m2 06/17/2018 2:52pm Height 63 inches 5'3" Weight 196.00 lb Weight 88.906 kg Respiratory Rate 16 /min Heart Rate 91 /min O2 % BldC Oximetry 98 % BP Systolic 103 mmHg BP Diastolic 70 mmHg Asthma Control Test 25 BMI (Body Mass Index) 34.7 kg/m2 02/15/2018 3:37pm Height 63 inches 5'3" Weight 186.00 lb Weight 84.370 kg Respiratory Rate 18 /min Heart Rate 88 /min O2 % BldC Oximetry 98 % BP Systolic 121 mmHg BP Diastolic 78 mmHg BMI (Body Mass Index) 32.9 kg/m2 02/08/2018 2:11pm Height 63 inches 5'3" Weight 186.00 lb Weight 84.370 kg Respiratory Rate 18 /min Heart Rate 88 /min O2 % BldC Oximetry 98 % BP Systolic 114 mmHg BP Diastolic 80 mmHg BMI (Body Mass Index) 32.9 kg/m2 Results Description No Information Available Procedures Date Code Description Status 12/16/2018 30341 Injection Completed 12/02/2018 58911 Injection Completed 11/22/2018 97631 Injection Completed 11/08/2018 62490 Extract 1-10 Completed 11/08/2018 94824 Injection Completed 10/21/2018 63937 Injection Completed 10/10/2018 82350 Injection Completed 10/02/2018 63625 Injection Completed 09/23/2018 17719 Injection Completed 09/19/2018 92372 Injection Completed 09/09/2018 96329 Injection Completed 08/29/2018 85891 Injection Completed 08/23/2018 79221 Injection Completed 08/16/2018 36923 Injection Completed 08/09/2018 27568 Extract 1-10 Completed 08/09/2018 98275 Injection Completed 07/29/2018 49372 Injection Completed 07/24/2018 69934 Injection Completed 07/11/2018 35371 Injection Completed 07/05/2018 50972 Injection Completed 06/27/2018 28962 Injection Completed 06/17/2018 42569 Injection Completed 06/17/2018 01648 Pre PFT Completed 06/14/2018 97980 Injection Completed 06/06/2018 61441 Injection Completed 05/29/2018 58347 Injection Completed 05/24/2018 53701 Injection Completed 05/17/2018 85700 Injection Completed 05/10/2018 38762 Injection Completed 05/03/2018 63409 Injection Completed 04/25/2018 45854 Extract 1-10 Completed 04/25/2018 97588 Extract 1-10 Completed 04/25/2018 03459 Injection Completed 04/25/2018 07647 Injection Completed 04/19/2018 57801 Injection Completed 04/11/2018 76390 Injection Completed 04/03/2018 73277 Injection Completed 03/27/2018 86589 Injection Completed 03/20/2018 03817 Injection Completed 03/14/2018 65534 Injection Completed 03/06/2018 71814 Injection Completed 03/01/2018 26747 Injection Completed 02/21/2018 53429 Injection Completed 02/15/2018 08369 Injection Completed 02/15/2018 78853 Pulmonary Function Test Completed 02/15/2018 35773 Pulmonary Function Test Completed 02/13/2018 96789 Extract 1-10 Completed 02/08/2018 13953 Skin Test Scratch # Of Units ____ Completed Encounters Type Date Location Provider Dx Diagnosis Office Visit 12/16/2018 Beverly Cuevas, H10.45 Other chronic allergic 3:00p [employer] conjunctivitis J30.1 Allergic rhinitis due to pollen J30.2 Other seasonal allergic rhinitis J30.81 Allergic rhinitis due to animal (cat) (dog) hair and dander J30.89 Other allergic rhinitis Office Visit 06/17/2018 3:00p Beverly Cuevas, J30.1 Allergic rhinitis [employer] due to pollen J30.2 Other seasonal allergic rhinitis J30.81 Allergic rhinitis due to animal (cat) (dog) hair and dander J30.89 Other allergic rhinitis J30.9 Allergic rhinitis, unspecified Office Visit 02/15/2018 3:40p Beverly Cuevas, J30.89 Other allergic [employer] rhinitis J30.81 Allergic rhinitis due to animal (cat) (dog) hair and dander J30.2 Other seasonal allergic rhinitis J30.1 Allergic rhinitis due to pollen J30.9 Allergic rhinitis, unspecified Office Visit 02/08/2018 2:00p [place] Shruthi Christie J30.9 Allergic rhinitis, M.D. unspecified R51 Headache Plan of Treatment Future Appointment(s):06/16/2019 9:40 am - [id number]10.45 Other chronic allergic eihsxryeivjzxoM30.1 Allergic rhinitis due to hagbqlR35.2 Other seasonal allergic xefdsgbiC16.81 Allergic rhinitis due to animal (cat) (dog) hair and qztpcjG65.89 Other allergic rhinitisNew Medication:Pazeo 0.7 %Recommendations: Continue all medications as prescribed.Refrain from wearing perfumes/scented colognes while visitingour office. Continue the Pazeo 1 drop each ey Use Proair 2 puffs before exertion or exercise Continue the mometasone nasal spray 2 sprays daily and prn Stop the Zyrtec 1 daily and see how you do. Continue the allergy shots
[2018-12-17 07:18] VITALS: BP 124/79
--- NOTE | 2018-12-17 07:57 | UC ---
UC General HPI - HPI Summary HPI Summary: PATIENT ARRIVES WITH A TENDER SWOLLEN LYMPH NODE ON THE LEFT SIDE OF HER NECK THAT HAS BEEN GETTING BIGGER OVER THE PAST 1 WEEK. DENIES ANY OTHER SYMPTOMS. NO FEVER, NAUSEA, PAIN WITH SWALLOWING. NO RECENT URI SYMPTOMS. STATES SHE WAS EXPOSED TO STREP ABOUT 2 WEEKS AGO. - History of Current Complaint Chief Complaint: UCGeneralIllness Stated Complaint: SWOLLEN LYMPH NODE Time Seen by Provider: 12/17/18 07:11 Hx Obtained From: Patient Hx Last Menstrual Period: 12/10/18 Onset/Duration: Gradual Onset, Lasting Days, Still Present Timing: Constant Onset Severity: Moderate Current Severity: Moderate Pain Intensity: 6 - Allergy/Home Medications Allergies/Adverse Reactions: Allergies Allergy/AdvReac Type Severity Reaction Status Date / Time erythromycin base Allergy See Comment Verified 12/17/18 07:17 Home Medications: Home Medications Acetaminophen [Masophen] 500 mg PO ONCE PRN 12/17/18 [History Confirmed 12/17/18 ] Calcium Carbonate [Calcium/C/D] 1 chw PO DAILY 12/17/18 [History Confirmed 12/17] Cyanocobalamin (Vitamin B-12) [B-12] 1,000 mcg PO DAILY 12/17/18 [History Confirmed 12/17/18] Magnesium [Magnesium Elemental] 30 mg PO DAILY 12/17/18 [History Confirmed 12/17] Multivitamin [Multivitamins] 1 tab PO DAILY 12/17/18 [History Confirmed 12/17/18 ] PMH/Surg Hx/FS Hx/Imm Hx Previously Healthy: Yes - Surgical History Surgical History: Yes Surgery Procedure, Year, and Place: 2002 RIGHT KNEE ARTHROSCOPIC SURGERY, [facility]. 2012 CONDYLOMA REMOVED FROM RECTUM, [facility]. 1998 BILATERAL MYRINGOTOMY WITH TUBE INSERTION AND REMOVAL, [facility]. gastric bypass - Family History Known Family History: Positive: Unknown - denies any cad Negative: Renal Disease - NO KIDNEY STONES - Social History Alcohol Use: Occasionally Substance Use Type: None Smoking Status (MU): Never Smoked Tobacco Household Exposure Type: Cigarettes - Immunization History Most Recent Influenza Vaccination: 2014 Most Recent Tetanus Shot: 2010 Most Recent Pneumonia Vaccination: NONE Review of Systems All Other Systems Reviewed And Are Negative: Yes Constitutional: Positive: Negative Skin: Positive: Negative ENT: Positive: Negative Respiratory: Positive: Negative Cardiovascular: Positive: Negative Gastrointestinal: Positive: Negative Physical Exam Triage Information Reviewed: Yes Appearance: Well-Appearing, No Pain Distress, Well-Nourished Vital Signs: Initial Vital Signs Temp 98.6 F 12/17/18 07:11 Pulse 77 12/17/18 07:11 Resp 18 12/17/18 07:11 BP 124/79 12/17/18 07:11 Pulse Ox 98 12/17/18 07:11 Vital Signs Reviewed: Yes Eyes: Positive: Conjunctiva Clear ENT: Positive: Hearing grossly normal, Pharynx normal, TMs normal Neck: Positive: Supple, Tenderness @ - SINGLE TENDER ENLARGED LYMPH NODE LEFT NECK, Enlarged Nodes @ - SINGLE TENDER ENLARGED LYMPH NODE LEFT NECK Respiratory Exam: Normal Cardiovascular Exam: Normal Abdomen Description: Positive: Soft Musculoskeletal: Positive: No Edema Neurological: Positive: Alert Psychological: Positive: Age Appropriate Behavior Skin: Negative: Rashes Course/Dx - Course Course Of Treatment: PATIENT WITH ISOLATED ENLARGED LYMPH NODE LEFT SUPERFICIAL CERVICAL REGION. HAS GOTTEN BIGGER AND PAINFUL OVER THE PAST 1 WEEK. EXAM OTHERWISE NORMAL. STREP TEST NEGATIVE. CBC AND CMP DRAWN TODAY. ADVISED PATIENT FOLLOW-UP WITH HER PCP IN A COUPLE OF WEEKS IF IT HAS NOT RESOLVED. SHE MAY BENEFIT FROM EMPIRIC ANTIBIOTICS AND/OR IMAGING AT THAT TIME. - Diagnoses Provider Diagnosis: Lymphadenopathy of left cervical region Discharge - Sign-Out/Discharge Documenting (check all that apply): Patient Departure All imaging exams completed and their final reports reviewed: No Studies - Discharge Plan Condition: Stable Disposition: HOME Patient Education Materials: Lymphadenopathy (ED) Referrals: Yulisa Davis MD [Primary Care Provider] - 2 Weeks Additional Instructions: STREP TEST NEGATIVE. BLOOD COUNT AND METABOLIC PANEL DRAWN TODAY. WE WILL CALL YOU IF ANY ABNORMAL RESULTS. THIS MAY SIMPLY BE A REACTIVE ENLARGED LYMPH NODE DUE TO A SUBACUTE PROCESS AND WILL HOPEFULLY RESOLVE WITH SOME TIME. FOLLOW-UP WITH YOUR PCP IF IT DOES NOT GO AWAY OR IF IT GETS BIGGER, MORE PAINFUL OR YOU DEVELOP ANY SYMPTOMS SUCH FEVER, NAUSEA OR ANYTHING ELSE CONCERNING. YOU MAY BENEFIT FROM IMAGING OR ANTIBIOTICS AT THAT TIME. - Billing Disposition and Condition Condition: STABLE Disposition: Home
[2018-12-17 11:36] LABS: ABS Basophils 0 10^3/ul (0-0.2); ABS Eosinophils 0.1 10^3/ul (0-0.6); ABS Lymphocytes 1.8 10^3/ul (1.0-4.8); ABS Monocytes 0.5 10^3/ul (0-0.8); ABS Neutrophils 4.5 10^3/ul (1.5-7.7); ABS Nucleated RBC 0 10^3/ul; Hematocrit 40 % (33-41); Hemoglobin 13.5 g/dL (12.0-16.0); Lymphocyte % 26.1 %; Mean Corpuscular HGB Conc 34 g/dL (31-36); Mean Corpuscular Hemoglobin 31 pg (27-31); Mean Corpuscular Volume 89 fL (80-97); Mean Platelet Volume 8.4 fL (7.4-10.4); Nucleated Red Blood Cells % 0; Platelet Count 324 10^3/uL (150-450); Red Blood Count 4.44 10^6 /uL (3.70-4.87); Red Cell Distribution Width 13 % (10.5-15); White Blood Count 6.9 10^3/uL (3.5-10.8)
[2018-12-17 11:49] LABS: Albumin 4.2 g/dL (3.2-5.2); Albumin/Globulin Ratio 1.8 (1-3); BUN/Creatinine Ratio 10.7 (8-20); Calcium 9.1 mg/dL (8.6-10.3); EGFR African American 152.8 (>60); EGFR Non-African American 126.3 (>60); Globulin 2.4 g/dL (2-4); Potassium 4.2 mmol/L (3.5-5.0); Total Bilirubin 0.5 mg/dL (0.2-1.0); Total Protein 6.6 g/dL (6.4-8.9)
== END 2018-12-17 08:42 | disposition home or self-care (01) ==
LOC: UCEAST 07:02
DX: R59.0 Localized enlarged lymph nodes (principal); Z88.1 Allergy status to other antibiotic agents
CPT/HCPCS: 36415; 80053; 85025; 87651; 99211; G0463